=== PATIENT | male | born 1950 | race Caucasian/White ===

== ENCOUNTER 2020-06-21 11:34 | Emergency (ER) | payer OTHER ==
[2020-06-21 15:49] LABS: BASOPHIL 0.4 % (0-2); EOSINOPHIL 2.2 % (0-7); HCT 51.6 % (42.0-52.0); HGB 17.2 g/dl (13.2-18.0); LYMPHOCYTE 13.5 % (15-48); MCH 29.8 pg (25.0-31.0); MCHC 33.3 g/dL (32.0-36.0); MCV 89.3 fL (78.0-100.0); MONOCYTE 8.2 % (0-12); MPV 11.2 fL (6.0-9.5); NEUTROPHIL 75.3 % (41-80); NRBC 0; PLT 217 K/uL (150-400); RBC 5.78 M/uL (4.70-6.00); RDW 13.4 % (11.5-14.0); WBC 9.8 K/uL (4.0-10.5)
[2020-06-21 17:00] LABS: BUN/CREAT RATIO (CALC) 21.2 RATIO; CREATININE 0.85 mg/dL (0.67-1.17); POTASSIUM 4.7 mmol/L (3.5-5.1)
[2020-06-21] MEDS ORDERED: NORCO 5-325 TA1 EACH PO (18:44)
== END 2020-06-21 19:09 | disposition home or self-care (01) ==
LOC: FER 11:34
PROVIDERS: Nurse Practitioner Family
DX: R10.9 Unspecified abdominal pain (principal); Z86.73 Personal history of transient ischemic attack (TIA), and cerebral infarction without residual deficits
CPT/HCPCS: 36415; 80048; 83690; 85025; 87339; J7030; Q9967

== ENCOUNTER 2020-08-14 16:19 | Emergency (ER) | payer OTHER ==
[~2020-08-14 16:19] MED LIST: NORCO 5-325 TA1 EACH PO
[2020-08-14 17:12] LABS: BASOPHIL 0.3 % (0-2); EOSINOPHIL 1.3 % (0-7); HCT 43.2 % (42.0-52.0); HGB 14.4 g/dl (13.2-18.0); LYMPHOCYTE 12.2 % (15-48); MCHC 33.3 g/dL (32.0-36.0); MONOCYTE 10.8 % (0-12); MPV 10.1 fL (6.0-9.5); NRBC 0; PLT 214 K/uL (150-400); RDW 13.7 % (11.5-14.0)
[2020-08-14 17:38] LABS: CREATININE 0.76 mg/dL (0.67-1.17); POTASSIUM 4.2 mmol/L (3.5-5.1)
[2020-08-14 17:39] LABS: ALBUMIN 3.3 g/dL (3.4-5.0); BILIRUBIN - TOTAL 0.5 mg/dL (0.2-1.0); GLOBULIN (CALCULATION) 3.4 g/dL; TOTAL PROTEIN 6.7 g/dL (6.4-8.2)
[2020-08-14] MEDS ORDERED: ZPAK PO (18:10)
== END 2020-08-14 18:30 | disposition home or self-care (01) ==
LOC: FER 16:19
PROVIDERS: Emergency Medicine
DX: J06.9 Acute upper respiratory infection, unspecified (principal); E11.9 Type 2 diabetes mellitus without complications; I10 Essential (primary) hypertension; F17.210 Nicotine dependence, cigarettes, uncomplicated
CPT/HCPCS: 36415; 71045; 80053; 82150; 83690; 83880; 85025; J1940

== ENCOUNTER 2021-03-22 14:59 | Emergency (ER) | payer OTHER ==
[~2021-03-22 14:59] MED LIST changes: +ZPAK PO
[2021-03-22 17:08] LABS: BASOPHIL 0.2 % (0-2); EOSINOPHIL 0.4 % (0-7); HCT 42.1 % (42.0-52.0); HGB 13.4 g/dl (13.2-18.0); LYMPHOCYTE 5.3 % (15-48); MCH 28.6 pg (25.0-31.0); MCHC 31.8 g/dL (32.0-36.0); MONOCYTE 8.9 % (0-12); MPV 10.2 fL (6.0-9.5); NEUTROPHIL 83.8 % (41-80); NRBC 0; PLT 315 K/uL (150-400); RBC 4.68 M/uL (4.70-6.00); RDW 13.5 % (11.5-14.0); WBC 10.2 K/uL (4.0-10.5)
[2021-03-22 17:30] LABS: ALBUMIN 2.3 g/dL (3.4-5.0); BILIRUBIN - TOTAL 0.4 mg/dL (0.2-1.0); BUN/CREAT RATIO (CALC) 26.6 RATIO; CREATININE 0.79 mg/dL (0.67-1.17); GLOBULIN (CALCULATION) 3.6 g/dL; POTASSIUM 3.8 mmol/L (3.5-5.1); TOTAL PROTEIN 5.9 g/dL (6.4-8.2)
[2021-03-22 21:40] LABS: BILIRUBIN NEGATIVE (NEGATIVE); BLOOD NEGATIVE Ery/uL (NEGATIVE); CLARITY CLEAR (CLEAR); COLOR YELLOW (YELLOW); GLUCOSE (U) 2+ mg/dL (NORMAL); LEUKOCYTES NEGATIVE Leu/uL (NEGATIVE); NITRITE NEGATIVE (NEGATIVE); PROTEIN NEGATIVE (NEGATIVE); SPECIFIC GRAVITY 1.025 (1.001-1.030); UROBILINOGEN 0.2 mg/dL (0.2-1.0)
[2021-03-23] MEDS ORDERED: ONDANSETRON ODT4 MG PO ×3 (11:06→12:00)
[2021-03-23] MEDS ORDERED: NORCO 5-325 TA1 EACH PO ×3 (11:06→12:00)
== END 2021-03-23 11:35 | disposition home or self-care (01) ==
LOC: FER 14:59
PROVIDERS: Physician Assistant
DX: C25.9 Malignant neoplasm of pancreas, unspecified (principal); E86.0 Dehydration; F32.A Depression, unspecified; E11.9 Type 2 diabetes mellitus without complications; F17.210 Nicotine dependence, cigarettes, uncomplicated; Z20.822 Contact with and (suspected) exposure to COVID-19; Z79.84 Long term (current) use of oral hypoglycemic drugs; Z79.4 Long term (current) use of insulin
CPT/HCPCS: 36415; 80053; 81003; 83690; 85025; J1100; J1170; J2405; J7030; U0002

== ENCOUNTER 2021-03-26 18:13 | Inpatient (IN) | payer OTHER ==
[~2021-03-26] VITALS: Ht 162.6 cm; Wt 76.3 kg
[~2021-03-26 18:13] MED LIST changes: +ONDANSETRON ODT4 MG PO
[2021-03-26 19:52] LABS: BASOPHIL 0.2 % (0-2); EOSINOPHIL 0.7 % (0-7); HCT 47.7 % (42.0-52.0); HGB 15.1 g/dl (13.2-18.0); LYMPHOCYTE 6.2 % (15-48); MCH 28.5 pg (25.0-31.0); MCHC 31.7 g/dL (32.0-36.0); MCV 90.2 fL (78.0-100.0); MONOCYTE 8.2 % (0-12); MPV 9.9 fL (6.0-9.5); NEUTROPHIL 83.6 % (41-80); NRBC 0; PLT 284 K/uL (150-400); RBC 5.29 M/uL (4.70-6.00); RDW 13.7 % (11.5-14.0); WBC 11.4 K/uL (4.0-10.5)
[2021-03-26 19:58] LABS: INR 1.13 (0.9-1.2); PROTHROMBIN TIME 13.9 SECONDS (11.8-13.4); PTT 27.3 SECONDS (24.4-34.7)
[2021-03-26 20:06] LABS: ALBUMIN 2.2 g/dL (3.4-5.0); BILIRUBIN - TOTAL 0.3 mg/dL (0.2-1.0); BUN/CREAT RATIO (CALC) 35.4 RATIO; CREATININE 0.96 mg/dL (0.67-1.17); GLOBULIN (CALCULATION) 3.5 g/dL; POTASSIUM 4.5 mmol/L (3.5-5.1); TOTAL PROTEIN 5.7 g/dL (6.4-8.2)
[2021-03-26 20:21] LABS: BILIRUBIN NEGATIVE (NEGATIVE); BLOOD 2+ Ery/uL (NEGATIVE); COLOR YELLOW (YELLOW); GLUCOSE (U) NORMAL (NORMAL); LEUKOCYTES NEGATIVE Leu/uL (NEGATIVE); NITRITE NEGATIVE (NEGATIVE); PROTEIN NEGATIVE (NEGATIVE); SPECIFIC GRAVITY 1.025 (1.001-1.030); UROBILINOGEN 0.2 mg/dL (0.2-1.0); pH 5.5 (5.0-9.0)
[2021-03-26 20:32] LABS: CLARITY SLIGHTLY HAZY (CLEAR); URINARY RBC 20-50
[2021-03-26 20:33] LABS: BACTERIA 1+; MUCOUS TRACE; RENAL EPITHELIAL CELLS >50
[2021-03-26 20:34] LABS: SPERM PRESENT
[2021-03-26 22:03] LABS: LACTIC ACID 4.6 mmol/L (0.4-1.9)
[2021-03-27 06:54] LABS: BASOPHIL 0.1 % (0-2); EOSINOPHIL 0.7 % (0-7); HCT 39.2 % (42.0-52.0); HGB 13.1 g/dl (13.2-18.0); LYMPHOCYTE 5.6 % (15-48); MCH 29.2 pg (25.0-31.0); MCHC 33.4 g/dL (32.0-36.0); MCV 87.5 fL (78.0-100.0); MONOCYTE 9.6 % (0-12); MPV 9.9 fL (6.0-9.5); NEUTROPHIL 83.3 % (41-80); NRBC 0; PLT 266 K/uL (150-400); RBC 4.48 M/uL (4.70-6.00); RDW 13.6 % (11.5-14.0); WBC 13.4 K/uL (4.0-10.5)
[2021-03-27 07:32] LABS: CKMB 4.6 ng/mL (0.0-3.6)
[2021-03-27 07:39] LABS: CORONAVIRUS 2019 SARS-COV-2 NEGATIVE (NEGATIVE); INFLUENZA A NAA NEGATIVE (NEGATIVE)
[2021-03-27 08:06] LABS: ALBUMIN 1.9 g/dL (3.4-5.0); BILIRUBIN - TOTAL 0.4 mg/dL (0.2-1.0); BUN/CREAT RATIO (CALC) 30.7 RATIO; C-REACTIVE PROTEIN 4.7 mg/dL (<=0.90); CREATININE 1.01 mg/dL (0.67-1.17); GLOBULIN (CALCULATION) 2.5 g/dL; MAGNESIUM 1.3 mg/dL (1.8-2.4); PHOSPHORUS 3.4 mg/dL (2.6-4.7); POTASSIUM 4.5 mmol/L (3.5-5.1); TOTAL PROTEIN 4.4 g/dL (6.4-8.2)
--- NOTE | 2021-03-27 16:55 | NUR ---
03/17/21 Mr. Palomo lives at home with his significant other of 30 years. He uses a wc for mobility and his home is wc accessible. Mr. Palomo is supported by and a snf from [employer]. He also retired from [employer] and took a lump sum. - Mr. Palomo is followed at [facility] and his PCP is Dr. Andrews. He is a of the [place] [employer]. He goes to the [facility] for medications. Dr. Nelson is the OR PCP. - Mr. Palomo is also able to fill prescriptions at [facility] in [place]. He does not have a Medicare D plan. - Mr. Palomo was educated to: Extra Help through [facility], [employer], Aid and Attendance and Geriatric Extended Care through [place].
[2021-03-28 05:28] LABS: BASOPHIL 0.1 % (0-2); EOSINOPHIL 1.4 % (0-7); HCT 35.7 % (42.0-52.0); HGB 11.4 g/dl (13.2-18.0); MCH 28.7 pg (25.0-31.0); MCHC 31.9 g/dL (32.0-36.0); MCV 89.9 fL (78.0-100.0); MONOCYTE 10.2 % (0-12); MPV 9.7 fL (6.0-9.5); NEUTROPHIL 82.8 % (41-80); NRBC 0; PLT 179 K/uL (150-400); RBC 3.97 M/uL (4.70-6.00); RDW 13.9 % (11.5-14.0); WBC 9.5 K/uL (4.0-10.5)
[2021-03-28 07:59] LABS: ALBUMIN 2.5 g/dL (3.4-5.0); BILIRUBIN - TOTAL 0.5 mg/dL (0.2-1.0); BUN/CREAT RATIO (CALC) 20.8 RATIO; CREATININE 1.06 mg/dL (0.67-1.17); GLOBULIN (CALCULATION) 2.2 g/dL; POTASSIUM 3.7 mmol/L (3.5-5.1); TOTAL PROTEIN 4.7 g/dL (6.4-8.2)
--- NOTE | 2021-03-28 15:39 | NUR ---
03/28/21 A referral was made to [facility] per patient choice. [phone] if patient discharges over the weekend.
[2021-03-29 05:42] LABS: BASOPHIL 0.2 % (0-2); EOSINOPHIL 0.9 % (0-7); HCT 36.5 % (42.0-52.0); LYMPHOCYTE 2.9 % (15-48); MCH 29.4 pg (25.0-31.0); MCHC 32.9 g/dL (32.0-36.0); MCV 89.5 fL (78.0-100.0); MONOCYTE 8.3 % (0-12); NEUTROPHIL 87.1 % (41-80); NRBC 0; PLT 188 K/uL (150-400); RBC 4.08 M/uL (4.70-6.00); RDW 14.2 % (11.5-14.0)
[2021-03-29 05:58] LABS: BUN/CREAT RATIO (CALC) 16.7 RATIO; CREATININE 1.02 mg/dL (0.67-1.17); MAGNESIUM 1.2 mg/dL (1.8-2.4); POTASSIUM 3.9 mmol/L (3.5-5.1)
[2021-03-30 04:39] LABS: BASOPHIL 0.2 % (0-2); EOSINOPHIL 0.8 % (0-7); HCT 37.2 % (42.0-52.0); HGB 11.9 g/dl (13.2-18.0); LYMPHOCYTE 4.4 % (15-48); MCH 28.9 pg (25.0-31.0); MCV 90.3 fL (78.0-100.0); MONOCYTE 10.1 % (0-12); MPV 10.4 fL (6.0-9.5); NEUTROPHIL 83.6 % (41-80); NRBC 0; PLT 225 K/uL (150-400); RBC 4.12 M/uL (4.70-6.00); RDW 14.5 % (11.5-14.0); WBC 12.8 K/uL (4.0-10.5)
[2021-03-30 05:01] LABS: BUN/CREAT RATIO (CALC) 16.7 RATIO; CREATININE 1.02 mg/dL (0.67-1.17); MAGNESIUM 1.2 mg/dL (1.8-2.4); POTASSIUM 3.9 mmol/L (3.5-5.1)
[2021-03-31 04:19] LABS: ALBUMIN 1.9 g/dL (3.4-5.0); BILIRUBIN - TOTAL 0.4 mg/dL (0.2-1.0); BUN/CREAT RATIO (CALC) 16.2 RATIO; CREATININE 1.11 mg/dL (0.67-1.17); GLOBULIN (CALCULATION) 3.2 g/dL; MAGNESIUM 1.4 mg/dL (1.8-2.4); POTASSIUM 3.9 mmol/L (3.5-5.1); TOTAL PROTEIN 5.1 g/dL (6.4-8.2)
--- NOTE | 2021-04-01 03:18 | NUR ---
PATIENT CALLED NURSE TO ROOM HE NOTED SOME BLOOD ON HIS SHEET. UPON ENTERING ROOM PATIENT WAS SITTINGON BEDSIDE COMMODE. LINES CHANGES AND UPON PATOENTS RETURN TO BED SKIN WAS ASSESSED AND IT WAS NOTED THAT HE HAD PULLED HIS TRIPLE LUMEN FEMEROL CATHERTER OUT. AREA REMAINED WITH 2 SUTURES INTACT. MIMIMAL BLEEDING NOTED FORM INSERTION SITE, PRESSURE DRESSING APPLIED. METAL BONDING HELPER NOTFIED NEW ORDER RECEIVED AND NOTED TO REMOVE SUTURES. PATTIENT TOELERATED SUCURE REMOVAL WELL. NO FURTHER BLEEDING NOTED FROM SITE. CATHERTER TIP INTACT. REMAINS AT BEDSIDE.
[2021-04-01 08:25] LABS: BASOPHIL 0.4 % (0-2); EOSINOPHIL 2.8 % (0-7); HCT 39.9 % (42.0-52.0); HGB 12.8 g/dl (13.2-18.0); LYMPHOCYTE 8.1 % (15-48); MCH 28.5 pg (25.0-31.0); MCHC 32.1 g/dL (32.0-36.0); MCV 88.9 fL (78.0-100.0); MONOCYTE 13.1 % (0-12); MPV 9.7 fL (6.0-9.5); NEUTROPHIL 74.8 % (41-80); NRBC 0; PLT 269 K/uL (150-400); RBC 4.49 M/uL (4.70-6.00); RDW 14.6 % (11.5-14.0); WBC 10.8 K/uL (4.0-10.5)
[2021-04-01 09:06] LABS: BUN/CREAT RATIO (CALC) 15.6 RATIO; CREATININE 0.9 mg/dL (0.67-1.17); MAGNESIUM 1.4 mg/dL (1.8-2.4); POTASSIUM 3.9 mmol/L (3.5-5.1)
--- NOTE | 2021-04-01 10:56 | NUR ---
04/01/21 [facility] was informed of discharge. A 3in1 was ordered from [facility].
[2021-04-01] MEDS ORDERED: AMIODARONE HCL100 MG PO (11:53)
[2021-04-01] MEDS ORDERED: MS CONTIN15 MG PO (11:53)
[2021-04-01] MEDS ORDERED: ELIQUIS5 MG PO (11:53)
[2021-04-01] MEDS ORDERED: ALDACTONE25 MG PO (11:53)
[2021-04-01] MEDS ORDERED: LASIX20 MG PO (11:53)
[2021-04-01] MEDS ORDERED: PROAMATINE5 MG PO (11:53)
[2021-04-02 15:10] LABS: FREE INSULIN 28 uU/mL (.); TOTAL INSULIN 28 uU/mL (.)
[2021-04-04 12:10] LABS: FREE INSULIN 6.8 uU/mL (.); TOTAL INSULIN 6.8 uU/mL (.)
== END 2021-04-01 17:20 | disposition home health service (06) | DRG 871 ==
LOC: FER 18:13 → FTCU 03-27 03:53 → FMS 03-27 03:53 → FICU 03-27 03:53 → FTCU 03-29 09:15 → FMS 03-31 07:44
PROVIDERS: Nurse Practitioner; Physician Assistant; ADMIT Allergy & Immunology Allergy
PROC: 3E033XZ Introduction of Vasopressor into Peripheral Vein, Percutaneous Approach (ICD-10-PCS; principal; 2021-03-27)
PROC: 06HM33Z Insertion of Infusion Device into Right Femoral Vein, Percutaneous Approach (ICD-10-PCS; 2021-03-27)
DX: A41.9 Sepsis, unspecified organism (principal); R65.21 Severe sepsis with septic shock; K65.9 Peritonitis, unspecified; C25.2 Malignant neoplasm of tail of pancreas; C78.6 Secondary malignant neoplasm of retroperitoneum and peritoneum; I48.92 Unspecified atrial flutter; R18.0 Malignant ascites; C78.7 Secondary malignant neoplasm of liver and intrahepatic bile duct; I50.20 Unspecified systolic (congestive) heart failure; I42.9 Cardiomyopathy, unspecified; Z20.822 Contact with and (suspected) exposure to COVID-19; L89.312 Pressure ulcer of right buttock, stage 2; I11.0 Hypertensive heart disease with heart failure; B96.89 Other specified bacterial agents as the cause of diseases classified elsewhere; E11.649 Type 2 diabetes mellitus with hypoglycemia without coma; I08.1 Rheumatic disorders of both mitral and tricuspid valves; E88.09 Other disorders of plasma-protein metabolism, not elsewhere classified; I48.91 Unspecified atrial fibrillation; K74.60 Unspecified cirrhosis of liver; F17.210 Nicotine dependence, cigarettes, uncomplicated; R63.4 Abnormal weight loss; Z68.25 Body mass index [BMI] 25.0-25.9, adult; Z89.612 Acquired absence of left leg above knee; Z79.899 Other long term (current) drug therapy; Z85.46 Personal history of malignant neoplasm of prostate; Z92.3 Personal history of irradiation; Z98.890 Other specified postprocedural states
CPT/HCPCS: 36415; 71045; 80048; 80053; 80202; 81001; 82553; 82962; 83525; 83527; 83605; 83615; 83735; 83880; 84100; 84145; 84484; 85025; 85610; 85730; 86140; 87040; 87449; 93005; 94010; 94760; 96365; 96375; C9113; J0282; J0696; J1160; J1170; J1650; J2405; J2543; J3370; J3475; J7030; J7050; J7060; J7121; P9046; P9047; Q9967; U0002

== ENCOUNTER 2021-04-06 14:14 | Inpatient (IN) | payer OTHER ==
[~2021-04-06] VITALS: Ht 162.6 cm; Wt 79.5 kg
[~2021-04-06 14:14] MED LIST changes: +ALDACTONE25 MG PO; +AMIODARONE HCL100 MG PO; +ELIQUIS5 MG PO; +LASIX20 MG PO; +MS CONTIN15 MG PO; +PROAMATINE5 MG PO
[2021-04-06 16:51] LABS: BASOPHIL 0.2 % (0-2); EOSINOPHIL 0.2 % (0-7); HCT 38.6 % (42.0-52.0); HGB 12.1 g/dl (13.2-18.0); LYMPHOCYTE 2.7 % (15-48); MCH 28.6 pg (25.0-31.0); MCHC 31.3 g/dL (32.0-36.0); MCV 91.3 fL (78.0-100.0); MPV 9.8 fL (6.0-9.5); NEUTROPHIL 89.4 % (41-80); NRBC 0; PLT 307 K/uL (150-400); RBC 4.23 M/uL (4.70-6.00); RDW 15.5 % (11.5-14.0); WBC 14.3 K/uL (4.0-10.5)
[2021-04-06 17:02] LABS: INR 1.09 (0.9-1.2); PROTHROMBIN TIME 13.5 SECONDS (11.8-13.4); PTT 25.5 SECONDS (24.4-34.7)
[2021-04-06 17:22] LABS: ALBUMIN 1.8 g/dL (3.4-5.0); BILIRUBIN - TOTAL 0.4 mg/dL (0.2-1.0); BUN/CREAT RATIO (CALC) 23.7 RATIO; C-REACTIVE PROTEIN 9.5 mg/dL (<=0.90); CREATININE 0.97 mg/dL (0.67-1.17); FT4 (FREE T4) 0.8 ng/dL (0.76-1.46); GLOBULIN (CALCULATION) 3.2 g/dL; MAGNESIUM 1.5 mg/dL (1.8-2.4); POTASSIUM 4.6 mmol/L (3.5-5.1)
[2021-04-06 17:37] LABS: LACTIC ACID 1.9 mmol/L (0.4-1.9)
[2021-04-06 19:05] LABS: BILIRUBIN 2+ mg/dL (NEGATIVE); BLOOD 3+ Ery/uL (NEGATIVE); CLARITY CLEAR (CLEAR); COLOR YELLOW (YELLOW); GLUCOSE (U) TRACE mg/dL (NORMAL); LEUKOCYTES 2+ Leu/uL (NEGATIVE); NITRITE NEGATIVE (NEGATIVE); PROTEIN NEGATIVE (NEGATIVE); SPECIFIC GRAVITY >=1.030 (1.001-1.030); UROBILINOGEN 0.2 mg/dL (0.2-1.0)
[2021-04-06 19:21] LABS: BACTERIA 1+; YEAST PRESENT
--- NOTE | 2021-04-07 10:26 | NUR ---
04/07/21 Please consider full admit or discharge. Thank You.
[2021-04-08 06:04] LABS: BASOPHIL 0.3 % (0-2); EOSINOPHIL 0.6 % (0-7); HCT 40.1 % (42.0-52.0); HGB 12.8 g/dl (13.2-18.0); LYMPHOCYTE 3.4 % (15-48); MCH 28.6 pg (25.0-31.0); MCHC 31.9 g/dL (32.0-36.0); MCV 89.5 fL (78.0-100.0); MPV 9.9 fL (6.0-9.5); NEUTROPHIL 87.5 % (41-80); NRBC 0; PLT 287 K/uL (150-400); RBC 4.48 M/uL (4.70-6.00); RDW 15.8 % (11.5-14.0)
[2021-04-08 06:08] LABS: WBC 18.2 K/uL (4.0-10.5)
[2021-04-08 07:06] LABS: BUN/CREAT RATIO (CALC) 21.8 RATIO; CREATININE 1.1 mg/dL (0.67-1.17); POTASSIUM 4.4 mmol/L (3.5-5.1)
--- NOTE | 2021-04-08 16:42 | NUR ---
04/08/21 Mr. Palomo lives at home with his s.o, Sahara Patel. He has a wc. Ms. Patel reports that the 3in1 was not delivered as ordered at the time of the last discharge. Laura's reports to have been unable to reach Mr. Palomo by telephone. Laura's was given Jorge's telephone #. - [facility] is current and were notified via Eddie of admission.
[2021-04-09 06:22] LABS: BASOPHIL 0.6 % (0-2); EOSINOPHIL 0.7 % (0-7); HCT 44.2 % (42.0-52.0); HGB 13.9 g/dl (13.2-18.0); LYMPHOCYTE 3.7 % (15-48); MCH 29.3 pg (25.0-31.0); MCHC 31.4 g/dL (32.0-36.0); MCV 93.2 fL (78.0-100.0); MONOCYTE 6.2 % (0-12); NEUTROPHIL 87.6 % (41-80); NRBC 0; PLT 282 K/uL (150-400); RBC 4.74 M/uL (4.70-6.00); RDW 16.1 % (11.5-14.0); WBC 19.4 K/uL (4.0-10.5)
[2021-04-09 06:50] LABS: BUN/CREAT RATIO (CALC) 23.7 RATIO; CREATININE 1.14 mg/dL (0.67-1.17); POTASSIUM 4.5 mmol/L (3.5-5.1)
[2021-04-10 06:28] LABS: HCT 42.4 % (42.0-52.0); HGB 13.5 g/dl (13.2-18.0); MCH 29.3 pg (25.0-31.0); MCHC 31.8 g/dL (32.0-36.0); MCV 92.2 fL (78.0-100.0); MPV 10.2 fL (6.0-9.5); RBC 4.6 M/uL (4.70-6.00); RDW 16.3 % (11.5-14.0)
[2021-04-10 06:42] LABS: BUN/CREAT RATIO (CALC) 22.2 RATIO; CREATININE 1.53 mg/dL (0.67-1.17)
[2021-04-10 07:03] LABS: POTASSIUM 5.6 mmol/L (3.5-5.1)
--- NOTE | 2021-04-10 11:56 | NUR ---
04/10/21 Mr. Palomo would like to stay here as comfort care. He and his spouse have been educated to [employer] services. A referral was made to [facility]. They are evaluating if patient is appropriate for inpatient Palliative Care Unit at [facility]
[2021-04-11 10:11] LABS: HCT 37.3 % (42.0-52.0); HGB 11.9 g/dl (13.2-18.0); MCH 29.2 pg (25.0-31.0); MCHC 31.9 g/dL (32.0-36.0); MCV 91.6 fL (78.0-100.0); MPV 9.9 fL (6.0-9.5); RBC 4.07 M/uL (4.70-6.00); RDW 16.6 % (11.5-14.0); WBC 17.4 K/uL (4.0-10.5)
[2021-04-11 10:40] LABS: BUN/CREAT RATIO (CALC) 22.2 RATIO; CREATININE 1.98 mg/dL (0.67-1.17); POTASSIUM 5.4 mmol/L (3.5-5.1)
[2021-04-11] MEDS ORDERED: OXYCODONE HCL5 M1 PO (12:47)
[2021-04-11] MEDS ORDERED: ATIVAN1 MG PO (12:47)
[2021-04-11] MEDS ORDERED: PHENERGAN25 M1 PO (12:47)
--- NOTE | 2021-04-11 16:48 | NUR ---
04/11/21 Mr. Palomo was approved for the [facility] and placed on the waiting list. He bed was available today. However, patient no longer met criteria for inpatient because orders had been changed to treatment per the inpatient [facility]. [facility] has made plans to admitted patient at home today at 7:30 p.m. The family was displeased with the plan to return home. However, agreed to go home. [facility] aranged delivery of a hospital bed. Family transported home. Per nursing, 02 was no longer required.
== END 2021-04-11 16:21 | DRG 871 ==
LOC: FER 14:14 → FTCU 04-07 06:39 → FMS 04-07 17:15
PROVIDERS: Emergency Medicine; Family Medicine; Internal Medicine; ADMIT Internal Medicine
DX: A41.9 Sepsis, unspecified organism (principal); G92.8 Other toxic encephalopathy; N30.00 Acute cystitis without hematuria; C25.9 Malignant neoplasm of pancreas, unspecified; I13.0 Hypertensive heart and chronic kidney disease with heart failure and stage 1 through stage 4 chronic kidney disease, or unspecified chronic kidney disease; I50.22 Chronic systolic (congestive) heart failure; N17.9 Acute kidney failure, unspecified; I48.92 Unspecified atrial flutter; R65.20 Severe sepsis without septic shock; Z66 Do not resuscitate; Z51.5 Encounter for palliative care; Z20.822 Contact with and (suspected) exposure to COVID-19; E11.22 Type 2 diabetes mellitus with diabetic chronic kidney disease; N18.2 Chronic kidney disease, stage 2 (mild); N48.1 Balanitis; B36.9 Superficial mycosis, unspecified; E03.9 Hypothyroidism, unspecified; E86.0 Dehydration; F17.200 Nicotine dependence, unspecified, uncomplicated; I48.91 Unspecified atrial fibrillation; K43.9 Ventral hernia without obstruction or gangrene; E83.42 Hypomagnesemia; E11.65 Type 2 diabetes mellitus with hyperglycemia; Z79.899 Other long term (current) drug therapy; Z79.01 Long term (current) use of anticoagulants; Z89.612 Acquired absence of left leg above knee; Z98.890 Other specified postprocedural states; Z80.1 Family history of malignant neoplasm of trachea, bronchus and lung
CPT/HCPCS: 36415; 36600; 71045; 80048; 80053; 81001; 82140; 82728; 82803; 82962; 83036; 83540; 83605; 83615; 83690; 83735; 83880; 84145; 84439; 84443; 84484; 85025; 85610; 85730; 86140; 87040; 87088; 93005; 97161; 97165; C9113; G0378; J0696; J1170; J1815; J2405; J2543; J2550; U0002